=== PATIENT | male | born 1955 | race American Indian/Alaskan Native ===

== ENCOUNTER 2017-10-07 09:10 | Emergency (ER) | payer BC ==
[2017-10-07 09:28] VITALS: BMI 26.7
[2017-10-07] MEDS ORDERED: Sodium Chloride 0.9% 1,000 ML IV STA (09:47)
--- NOTE | 2017-10-07 09:49 | ED PDOC ---
Arrival/HPI - General Time Seen by Provider: 10/07/17 09:28 Historian: Patient, Spouse - History of Present Illness Narrative History of Present Illness (Text): 10/07/17 09:42 Patient is a 62 year old male whose past medical history includes hypertension, hyper bronchial condition(as per ), and diverticulosis, who presents to the Emergency department with his and is complaining of episodes of severe abdominal pain for the past week. He reports experiencing 3 episodes of severe stabbing abdominal pain radiating bilaterally to his lower back. He notes that his pain is alleviated with laying on his back and is exacerbated by standing. Patient has an inguinal hernia and presented [place] [facility] pre-op blood work for a hernia repair that is scheduled in October with . He has already had his blood work done prior to arrival. He denies any history of abdominal surgery. Patient admits to feeling nauseous with his abdominal pain but denies fevers, chills, cough, shortness of breath, chest pain, dyspnea on exertion, vomiting, diarrhea, neck pain, headache, dizziness, or any other complaint. PMD: Dr.Edward Mckeon Contract Manager: Time/Duration: 1 week Symptom Onset: Sudden Symptom Course: Intermittent Quality: Stabbing Severity Level: Severe Context: Standing Past Medical History - Provider Review Nursing Documentation Reviewed: Yes - Cardiac Hx Hypertension: Yes - Pulmonary Hx Asthma: Yes - Musculoskeletal/Rheumatological Hx Falls: No - Gastrointestinal Hx Gastrointestinal Disorders: Yes (GI bleed) - Psychiatric Hx Substance Use: No - Suicidal Assessment Feels Threatened In Home Enviroment: No Family/Social History - Physician Review Nursing Documentation Reviewed: Yes Family/Social History: No Known Family HX Smoking Status: Former Smoker Hx Alcohol Use: No Hx Substance Use: No Hx Substance Use Treatment: No Allergies/Home Meds Allergies/Adverse Reactions: Allergies Penicillins Allergy (Severe, Verified 10/07/17 10:13) "WELTS' Home Medications: Home Meds Medication Instructions Recorded Confirmed Montelukast [Singulair] 10 mg PO QPM 12/05/11 10/07/17 Albuterol Sulfate [Proair Hfa] 2 puff INH QID 12/06/12 10/07/17 Cetirizine HCl/Pseudoephedrine 1 tab PO DAILY 10/07/17 10/07/17 [Zyrtec-D Tablet] Fluticasone Nasal [Flonase] 2 actuation NS DAILY 10/07/17 10/07/17 amLODIPine [Norvasc] 5 mg PO DAILY 10/07/17 10/07/17 Review of Systems - Physician Review All systems were reviewed & negative as marked: Yes - Review of Systems Constitutional: absent: Fevers, Night Sweats Respiratory: absent: SOB, Cough Cardiovascular: absent: Chest Pain, [place] Gastrointestinal: Abdominal Pain, Nausea. absent: Diarrhea, Vomiting Musculoskeletal: Back Pain. absent: Neck Pain Neurological: absent: Headache, Dizziness Physical Exam Vital Signs Reviewed: Yes Vital Signs Temp Pulse Resp BP Pulse Ox 10/07/17 14:27 98 F 72 20 155/89 H 98 10/07/17 09:48 98 F 60 18 171/86 H 100 10/07/17 09:27 98.1 F 61 18 183/91 H 100 Temperature: Afebrile Blood Pressure: Hypertensive Pulse: Regular Respiratory Rate: Normal Appearance: Positive for: Well-Appearing Mental Status: Positive for: Alert and Oriented X 3 - Systems Exam Head: Present: Atraumatic, Normocephalic Pupils: Present: PERRL Extroacular Muscles: Present: EOMI Conjunctiva: Present: Normal Mouth: Present: Moist Mucous Membranes Neck: Present: Normal Range of Motion Respiratory/Chest: Present: Clear to Auscultation, Good Air Exchange. No: Respiratory Distress, Accessory Muscle Use Cardiovascular: Present: Regular Rate and Rhythm, Normal S1, S2. No: Murmurs Abdomen: Present: Tenderness (LUQ tenderness), Hernias (Left inguinal hernia evaluated when standing, protruding but reducible). No: Distention, Peritoneal Signs Back: Present: Paraspinal Tenderness (Bilateral lower back tenderness) Upper Extremity: Present: Normal Inspection. No: Cyanosis, Edema Lower Extremity: Present: Normal Inspection. No: Edema Neurological: Present: GCS=15, CN II-XII Intact, Speech Normal Skin: Present: Warm, Dry, Normal Color. No: Rashes Psychiatric: Present: Alert, Oriented x 3, Normal Insight, Normal Concentration Medical Decision Making ED Course and Treatment: 10/07/17 09:52 Impression: Patient is a 62 year old male who is complaining of severe stabbing intermittent abdominal pain radiating to his back which started 1 weeks ago. Differential Diagnosis included but are not limited to: Diverticulitis vs. inguinal hernia pain, r/o incarceration Plan: --Abdominal and pelvic Contrast with PO and IV contrast --Toradol --IV fluids --Urinalysis -- Reassess and disposition Prior Visits: Notes and results from previous visits were reviewed. Progress Notes: 10/07/17 12:40 On reevaluation patient still experiencing some back pain when he stands. Will order pain medication. 10/07/17 12:[address] with contrast: Creator : Sergio More MD IMPRESSION: Stable colonic diverticulosis without acute findings. Small left inguinal hernia is also stable with no bowel incarceration associated. Only mesenteric fat is seen once again. Subtle contrast enhancement. 10/07/17 14:20 Patient is feeling better. CT results reviewed with patient and family. He was seen by Dr. Robert Mckeon who came to evaluate patient and agrees that if CT is normal that patient can go home. Patient wants to go home and continue his care with Dr. Guerin who is planning on operating on his hernia. He was advised to return to the ED if symptoms or any other concern. - Lab Interpretations Lab Results: Lab Results 10/07/17 11:04: Urine Color Yellow, Urine Appearance Turbid, Urine pH 6.5, Ur Specific [place] 1.015, Urine Protein Negative, Urine Glucose (UA) Negative, Urine Ketones Negative, Urine Blood Negative, Urine Nitrate Negative, Urine Bilirubin Negative, Urine Urobilinogen 0.2, Ur Leukocyte Esterase Negative - RAD Interpretation Radiology Orders: 10/07/17 09:42 ABD PELVIS PO & IV CONTRAST [CT] Stat Tourist Agent: Radiologist - Medication Orders Current Medication Orders: Discontinued Medications Cyclobenzaprine HCl (Flexeril) 10 mg PO STAT STA Stop: 10/07/17 13:34 Last Admin: 10/07/17 13:50 Dose: 10 mg Sodium Chloride (Sodium Chloride 0.9%) 1,000 mls @ 999 mls/hr IV .Q1H1M STA Stop: 10/07/17 10:47 Last Admin: 10/07/17 10:08 Dose: 999 mls/hr eMAR Start Stop Document 10/07/17 10:08 EAR (Rec: 10/07/17 10:09 EAR [id number]) Intravenous Solution Start Date 10/07/17 Start Time 10:08 End Date 10/07/17 End time 11:10 Total Infusion Time 62 Ketorolac Tromethamine (Toradol) 30 mg IVP STAT STA Stop: 10/07/17 09:44 Last Admin: 10/07/17 10:08 Dose: 30 mg MAR Pain Assessment Document 10/07/17 10:08 EAR (Rec: 10/07/17 10:08 EAR [id number]) Pain Reassessment Is this a pain reassessment? Yes Sleep Is patient sleeping during reassessment? No Presence of Pain Presence of Pain No Pain Scale Used Pain Scale Used Numeric Location Upper or Lower Lower Description Description Intermittent IVP Administration Document 10/07/17 10:08 EAR (Rec: 10/07/17 10:08 EAR [id number]) Charges for Administration # of IVP Administrations 1 - Scribe Statement The provider has reviewed the documentation as recorded by the Scribe Zoltan Jain Provider Scribe Attestation: All medical record entries made by the Scribe were at my direction and personally dictated by me. I have reviewed the chart and agree that the record accurately reflects my personal performance of the history, physical exam, medical decision making, and the department course for this patient. I have also personally directed, reviewed, and agree with the discharge instructions and disposition. Disposition/Present on Arrival - Present on Arrival Any Indicators Present on Arrival: No History of DVT/PE: No History of Uncontrolled Diabetes: No Urinary Catheter: No History Surgical Site Infection Following: None - Disposition Have Diagnosis and Disposition been Completed?: Yes Diagnosis: Diverticulosis, Inguinal hernia of left side without obstruction or gangrene, Back pain Disposition: HOME/ ROUTINE Disposition Time: 14:28 Patient Plan: Discharge Condition: IMPROVED Discharge Instructions (ExitCare): Inguinal and Femoral (Groin) Hernias, Diverticulosis Additional Instructions: JORGE LEVIN, thank you for letting us take care of you today. Your provider was Tahir Jenkins DO and you were treated for Inguinal Hernia, Diverticulosis, Back Pain. The emergency medical care you received today was directed at your acute symptoms. If you were prescribed any medication, please fill it and take as directed. It may take several days for your symptoms to resolve. Return to the Emergency Department if your symptoms worsen, do not improve, or if you have any other problems. Please contact your doctor or call one of the physicians/clinics you have been referred to that are listed on the Patient Visit Information form that is included in your discharge packet. Bring any paperwork you were given at discharge with you along with any medications you are taking to your follow up visit. Our treatment cannot replace ongoing medical care by a primary care provider outside of the emergency department. Thank you for allowing the [facility] team to be part of your care today. If you had an X-Ray or CT scan: A Radiologist will review the ED reading if any change in treatment is needed we will contact you. If you had a blood, urine, or wound culture: It will take several days for the results, if any change in treatment is needed we will contact you. If you had an STI test: It will take 48 hours for the results. Please call after 1 week if you have not heard back. Prescriptions: Acetaminophen [Tylenol 325mg tab] 650 mg PO Q4 #60 tab Cyclobenzaprine [Flexeril] 5 mg PO TID PRN #20 tab PRN Reason: Muscle Spasm Referrals: Kuldip Mckeon MD [Primary Care Provider] - Follow up with primary Forms: WORK NOTE
[2017-10-07] MEDS ORDERED: Iohexol 240 (50 ml) ONE (09:50)
[2017-10-07 09:52] VITALS: TEMP 98
[2017-10-07] MEDS ORDERED: Iohexol 350 MG/100 ML VIAL ONE (11:22)
[2017-10-07 11:28] LABS: PH,URINE 6.5 (4.7-8.0); URINE BILIRUBIN NEGATIVE (NEGATIVE); URINE BLOOD NEGATIVE (NEGATIVE); URINE GLUCOSE (UA) NEGATIVE (NEGATIVE); URINE LEUKOCYTE ESTERASE NEGATIVE Leu/uL (NEGATIVE); URINE PROTEIN NEGATIVE mg/dL (<30 mg/dL); URINE UROBILINOGEN 0.2 E.U./dL (<1 E.U./dL)
[2017-10-07 11:29] LABS: URINE APPEARANCE TURBID (CLEAR); URINE COLOR YELLOW (YELLOW)
--- NOTE | 2017-10-07 12:40 | CT ---
PROCEDURE: CT Abdomen and Pelvis with contrast HISTORY: abd pain r/o diverticulitis r/o left inguina incar COMPARISON: Abdomen pelvis CT without contrast 07/23/2017. TECHNIQUE: Following oral and intravenous contrast administration, a CT examination of the abdomen and pelvis performed from the domes of the diaphragms to the symphysis pubis with reformatted datasets provided not only axial but also sagittal and coronal series. Contrast dose: Omnipaque 350, 100 cc Radiation dose: Total exam DLP = 606.22 mGy-cm. This CT exam was performed using one or more of the following dose reduction techniques: Automated exposure control, adjustment of the mA and/or kV according to patient size, and/or use of iterative reconstruction technique. FINDINGS: There is suboptimal contrast enhancement. LOWER THORAX: Interval linear atelectasis LIVER: Unremarkable. No gross lesion or ductal dilatation. GALLBLADDER AND BILE DUCTS: Unremarkable. PANCREAS: Unremarkable. No gross lesion or ductal dilatation. SPLEEN: Unremarkable. ADRENALS: Unremarkable. No mass. KIDNEYS AND URETERS: Unremarkable. No hydronephrosis. No solid mass. VASCULATURE: Unremarkable. No aortic aneurysm. BOWEL: Stomach appears unremarkable. There is no bowel obstruction identified. Sigmoid diverticular changes do not appear acute. Splenic flexure and descending colon segments are also scattered with diverticular but without definite acute local changes. APPENDIX: Normal appendix. PERITONEUM: No ascites, measure edema or free intraperitoneal gas identified. A small left inguinal hernia appears stable containing only fat and no bowel. LYMPH NODES: Unremarkable. No enlarged lymph nodes. BLADDER: Unremarkable. REPRODUCTIVE: Unremarkable. BONES: No acute fracture. OTHER FINDINGS: None. IMPRESSION: Stable colonic diverticulosis without acute findings. Small left inguinal hernia is also stable with no bowel incarceration associated. Only mesenteric fat is seen once again. Subtle contrast enhancement.
[2017-10-07 14:27] VITALS: BP 155/89; PULSE 72; RESP 20; O2SAT 98
== END 2017-10-07 14:00 | disposition home or self-care (01) ==
LOC: ED 09:10
DX: K57.30 Diverticulosis of large intestine without perforation or abscess without bleeding (principal); K40.90 Unilateral inguinal hernia, without obstruction or gangrene, not specified as recurrent; M54.9 Dorsalgia, unspecified; I10 Essential (primary) hypertension; Z87.891 Personal history of nicotine dependence
CPT/HCPCS: 74177; 81003; 96361; 96374; 99284; J1885; J7030; Q9966; Q9967

== ENCOUNTER 2017-10-22 06:27 | Day surgery (SDC) | payer BC ==
[2017-10-07 08:50] VITALS: BMI 26.7
[2017-10-22] MEDS ORDERED: Bupivacaine 0.5% Inj(30mL) ONE (07:15)
[2017-10-22] MEDS ORDERED: Propofol 10 mg/ml Inj (20 ML) ONE ×2 (07:45→09:28)
[2017-10-22] MEDS ORDERED: Midazolam 2 MG/2 ML VIAL ONE (07:45)
[2017-10-22] MEDS ORDERED: Rocuronium 10 mg/ml (5 ml) ONE (07:47)
[2017-10-22] MEDS ORDERED: Neostigmine Methylsulfate 3mg/3ml Syringe IV ONE (07:56)
[2017-10-22] MEDS ORDERED: Glycopyrrolate 0.2 mg/ml (2ml vial) ONE (09:14)
--- NOTE | 2017-10-22 09:49 | PCM.SURG1 ---
Surgeon's Initial Post Op Note - Surgeon's Notes Surgeon: Dr. Guerin Cell Preparer: Dr. Zamora PGY-4, Dr. Cook PGY-1 Type of Anesthesia: General Endo, Local Anesthesia Administered By: Dr. Kern Pre-Operative Diagnosis: Left inguinal hernia Operative Findings: Left indirect inguinal hernia Post-Operative Diagnosis: Left inguinal hernia Operation Performed: Left inguinal hernia repair with Phasix mesh Specimen/Specimens Removed: none Estimated Blood Loss: EBL {In ML}: 10 Blood Products Given: N/A Drains Used: No Drains Post-Op Condition: Good Date of Surgery/Procedure: 10/22/17 Time of Surgery/Procedure: 08:00
[2017-10-22] MEDS ORDERED: Oxycodone/Acetaminophen 5/325 mg Tab PO PRN (09:53)
[2017-10-22] MEDS ORDERED: Lactated Ringer's 1,000 ML IV SCH (10:00)
[2017-10-22 11:01] VITALS: RESP 18; TEMP 97.7
[2017-10-22] MEDS ORDERED: Oxycodone/Acetaminophen 5/325 mg Tab ONE (11:05)
[2017-10-22 12:28] VITALS: BP 119/64; PULSE 54; O2SAT 100
--- NOTE | 2017-11-04 06:30 | OP ---
PROCEDURE DATE: 10/22/2017 DESCRIPTION OF PROCEDURE: Aldo Harris was seen in the operating room. The left inguinal hernia was identified and reduced. Left inguinal hernia was marked. Consent was checked. Time-out was taken and successful. The left inguinal area was prepped with chlorhexidine, waiting three minutes then prepped and draped. A left inguinal incision was made by the surgeon, Dr. Guerin and office assistant receptionist, Dr. Zamora. Estimated blood loss was minimal. Complications none. Incision was taken down through the subcutaneous tissues. The external oblique was divided in the directions of its fibers. At the pubic tubercle, the cord was circumscribed and pulled out of the way. The hernia sac was then identified as an indirect sac. High dissection was performed and this was then prolapsed back. The sac was then pushed in and a large hernia plug was placed, sutured several times with Vicryl. The external oblique was then reinforced with a mesh going around the cord with a Vicryl. The ends were trimmed and was placed in a neutral position. The external oblique was closed over. Subcutaneous tissue was closed with Vicryl, followed by a subcuticular PDS and Dermabond. The patient was taken to the recovery room in good condition after the sponge and needle counts declared correct. Tomas Guerin MD
== END 2017-10-22 13:15 | disposition home or self-care (01) ==
LOC: SDS 06:27
PROVIDERS: ATTEND Surgery
DX: K40.90 Unilateral inguinal hernia, without obstruction or gangrene, not specified as recurrent (principal); I10 Essential (primary) hypertension; J40 Bronchitis, not specified as acute or chronic; Z96.652 Presence of left artificial knee joint; Z88.0 Allergy status to penicillin
CPT/HCPCS: 49505; J0690; J2001; J2250; J2405; J2704; J2710; J3010; J7120 ×2